=== PATIENT | male | born 1970 | race African-American/Black ===

== ENCOUNTER 2017-07-26 12:08 | Emergency (ER) | payer OTHER ==
[~2017-07-26] VITALS: Ht 175.3 cm; Wt 84.1 kg
[2017-07-26 13:25] VITALS: BP 152/70
[2017-07-26] MEDS ORDERED: ISOS5TAB5 PO (13:29)
[2017-07-26] MEDS ORDERED: LISI-660 PO (13:29)
[2017-07-26] MEDS ORDERED: SPIR25 PO (13:29)
[2017-07-26] MEDS ORDERED: FURO40I IM (13:29)
[2017-07-26] MEDS ORDERED: CARV3 PO (13:29)
== END 2017-07-26 16:31 | disposition left against medical advice (07) ==
LOC: EMS 12:11
DX: R07.89 Other chest pain (principal); Z53.21 Procedure and treatment not carried out due to patient leaving prior to being seen by health care provider
CPT/HCPCS: 93005; 99281